=== PATIENT | female | born 1950 | race Caucasian/White ===

== ENCOUNTER 2019-08-09 11:18 | Emergency (ER) | payer MEDICARE, OTHER ==
[~2019-08-09] VITALS: Ht 162.6 cm; Wt 68.6 kg
--- OUTSIDE RECORDS SUMMARY | 2019-08-09 11:20 | XMS REPORT | Summary of Care ---
Author Author KOBI HERZOG N.P. Organization Unknown Address Unknown Phone Unavailable Care Team Providers Care Car Greaser Name Role Phone KOBI HERZOG N.P. Unavailable Unavailable CALLIE P.A.DHAVAL Unavailable Unavailable SHANTEL ESPNIOSA [place], BLAIR Mccartney Unavailable Unavailable Functional Status Name Dates Details Functional status health issues are not documented Status: Name Dates Details Cognitive status health issues are not documented Status: Problems Name Dates Details Essential (primary) hypertension (401.9, I10) Status: Active Thyroid nodule (241.0, E04.1) Status: Active Breast cancer screening (V76.10, Z12.31) Status: Active Post-menopausal osteoporosis (733.01, M81.0) Status: Active Change in nail appearance (729.89, L60.8) Status: Active Medications Name Dates Details Lisinopril 5 MG Oral Tablet CALLIE P.A., DHAVAL * Start : 09-Feb-2019 Active 45 Tablet Bottle Citracal Plus Oral Tablet * Refills: 0 CALLIE P.A., DHAVAL * Start : 09-Feb-2019 Active Osteo Bi-Flex Triple Strength Oral Tablet * Refills: 0 CALLIE P.A., DHAVAL * Start : 09-Feb-2019 Active Vitamin D 2000 UNIT Oral Tablet * Refills: 0 CALLIE P.A., DHAVAL * Start : 09-Feb-2019 Active Turmeric Curcumin Oral Capsule * Refills: 0 CALLIE P.A., DHAVAL * Start : 09-Feb-2019 Active DHEA 10 MG Oral Tablet * Refills: 0 CALLIE P.A., DHAVAL * Start : 09-Feb-2019 Active Methyl B-12 1000 MCG Oral Lozenge * Refills: 0 CALLIE P.A., DHAVAL * Start : 09-Feb-2019 Active Hair Skin Nails Oral Capsule * Refills: 0 CALLIE P.A., DHAVAL * Start : 09-Feb-2019 Active Claritin 10 MG Oral Capsule * Refills: 0 CALLIE P.A., DHAVAL * Start : 09-Feb-2019 Active Allergies and Adverse Reactions Name Dates Details Sulfa Drugs (Allergy) Status: Active Past Medical History Name Dates Details History of hypertension (V12.59, Z86.79) Status: Resolved History of thyroid disorder (V12.29, Z86.39) Status: Resolved Procedures Procedure Dates Details [QLH] LIPID PANEL Date: 09-Feb-2019 [QLH] CBC (INCLUDES DIFF/PLT) Date: 09-Feb-2019 [QL] CMP W/EGFR Date: 09-Feb-2019 [QLH] TSH, 3RD GENERATION W/REFLEX TO FT4 Date: 09-Feb-2019 [QL] URINALYSIS, COMPLETE Date: 09-Feb-2019 [QLH] VITAMIN D, 25-HYDROXY, LC/MS/MS Date: 09-Feb-2019 [place] Digital Mammo Screening Abdulkadir [id number] Date: 09-Feb-2019 [place] Bone Density [employer]XA [employer] 52657 Date: 09-Feb-2019 [place] Thyroid 37025 Date: 09-Feb-2019 Immunization Name Dates Details Shingrix 50 MCG/0.5ML Intramuscular Suspension Reconstituted on: 08-Nov-2016 Tdap on: Nov-2017 Family History Name Dates Details Family history of Alzheimer's disease (V17.2, Z82.0) Status: Active Name Dates Details Family history of malignant neoplasm (V16.9, Z80.9) Status: Active Name Dates Details Family history of hypertension (V17.49, Z82.49) Status: Active Name Dates Details Family history of High cholesterol (272.0, E78.00) Status: Active Family history of cerebrovascular accident (CVA) (V17.1, Z82.3) Status: Active Family history of Alzheimer's disease (V17.2, Z82.0) Status: Active Social History Name Dates Details - Status: Name Dates Details Never smoker Vital Signs Date Test Result Details 09-Feb-20199:20 BP Systolic 122 mm[Hg] Status: Comments: Location: LUE; Position: Sitting BP Diastolic 73 mm[Hg] Status: Comments: Location: LUE; Position: Sitting Height 64 in Status: Temperature 97 f Status: Comments: Method: Temporal Heart Rate 63 /min Status: Respiration Rate 16 /min Status: 09-Feb-20198:52 Physical Findings 1 Status: Comments: PHQ-9 Adult Depression Screening Results Date Description Value Details Results not documented Plan of Care Name Dates Details Planned Observations Planned Goals not documented Interventions Provided Labs/Procedures/Imaging* [QLH] CBC (INCLUDES DIFF/PLT); To Be Done: 09 Feb 2019 * [QLH] CMP W/EGFR; To Be Done: 09 Feb 2019 * [QL] LIPID PANEL; To Be Done: 09 Feb 2019 * [QLH] TSH, 3RD GENERATION W/REFLEX TO FT4; To Be Done: 09 Feb 2019 * [QL] URINALYSIS, COMPLETE; To Be Done: 09 Feb 2019 * [QLH] VITAMIN D, 25-HYDROXY, LC/MS/MS; To Be Done: 09 Feb 2019 * [place] Bone Density DXA [employer] 95422; To Be Done: 09 Feb 2019 * [place] Digital Mammo Screening Abdulkadir [id number]; To Be Done: 09 Feb 2019 * [place] Thyroid 18642; To Be Done: 09 Feb 2019 Follow-ups/Referrals* Dermatology Referral; To Be Done: 09 Feb 2019 Instructions Name Dates Details Instructions not documented Encounters Appointment; KOBI HERZOG NP Encounter Diagnosis: Problem not documented On: 09-Feb-2019 9:00
--- NOTE | 2019-08-09 12:23 | Diagnostic Imaging Report ---
Left foot, 3 views. History: Trauma to the great toe. Findings: The soft tissues are normal. The bones are diffusely osteopenic. There is no evidence of fracture or dislocation. There are no lytic or sclerotic lesions. The joint spaces are within normal limits. IMPRESSION: No acute osseous abnormality. Signed by: Michael Harper on 08/09/2019 12:19 PM
[2019-08-09] MEDS ORDERED: BACITRACIN ZINC 0.9GM TP ONE (13:40)
[2019-08-09] MEDS ORDERED: BACITRACIN ZINC 0.9GM TP STA (13:41)
[2019-08-09 13:54] VITALS: BP 149/80
== END 2019-08-09 13:42 | disposition home or self-care (01) ==
LOC: FSED 11:18
DX: S90.212A Contusion of left great toe with damage to nail, initial encounter (principal); W20.8XXA Other cause of strike by thrown, projected or falling object, initial encounter; Y92.008 Other place in unspecified non-institutional (private) residence as the place of occurrence of the external cause
CPT/HCPCS: 99284